=== PATIENT | female | born 1995 | race Caucasian/White ===

== ENCOUNTER 2023-12-12 11:30 | Emergency (ER) | payer MEDICAID, OTHER ==
[~2023-12-12] VITALS: Ht 152.4 cm; Wt 84.0 kg
[2023-12-12 11:34] VITALS: PULSE 82; O2SAT 100
[2023-12-12 11:45] VITALS: BP 108/68; RESP 18; TEMP 97.9; O2SAT 100
[2023-12-12] MEDS ORDERED: AMOX-494 MT (12:45)
[2023-12-12] MEDS ORDERED: IBUP-2029 MT (12:45)
[2023-12-12] MEDS: IBUPROFEN 600MG TABLET PO ONE (13:03)
== END 2023-12-12 13:04 | disposition left against medical advice (07) ==
LOC: ER 11:50
DX: J02.9 Acute pharyngitis, unspecified (principal); H92.02 Otalgia, left ear
CPT/HCPCS: 99283